=== PATIENT | female | born 1965 | race Caucasian/White ===

== ENCOUNTER → 2019-11-20 | Outpatient (CLI) | payer MEDICARE, OTHER ==
--- NOTE | 2019-11-21 13:01 | RADIOLOGY REPORT (SQ) ---
EXAM DESCRIPTION: MRI RT UPPER JOINT COMBO IMAGES COMPLETED DATE/TIME: 11/20/2019 5:00 pm REASON FOR STUDY: M25.831 OTHER SPECIFIED JOINT DISORDERS, RIGHT WRIST M25.831 OTHER SPECIFIED JOIN T DISORDERS, RIGHT WRIST COMPARISON: None. CONTRAST TYPE AND DOSE: 15 mL Prohance. RENAL FUNCTION: Not needed. TECHNIQUE: Multiplanar fat and fluid sensitive sequences precontrast including T1, T2 fat saturated or STIR. Post contrast T1 fat saturated sequences after IV gadolinium administration. Skin surface marker(s) placed at region(s) of interest. FINDINGS: Mass: None noted in the superficial or deep tissues in the region of interest. There is a hyperintense T2 mass in the deep volar radial aspect along the flexor carpi radialis tendon. This mass lies deep to the carpal tunnel and measures up to 1.5 cm along the length of the wrist. No enha ncing lesions. No significant joint effusion. Other soft tissues: Generally intact ligaments and tendons. Bones: Marrow signal looks generally normal. Carpal alignment is generally anatomic. No scapholuna te interval widening. IMPRESSION: 1. In the region of interest overlying the scapholunate interval, no mass identified. 2. Deep volar ganglion is suggested as above. TECHNICAL DOCUMENTATION: JOB ID: [id number] 2010 [employer]- All Rights Reserved Reading location - IP/workstation name: [email or web address]
== END ==
LOC: RAD 15:35
PROVIDERS: ATTEND Physician Assistant
DX: M25.831 Other specified joint disorders, right wrist (principal)
CPT/HCPCS: 82565; 73223; A9576